=== PATIENT | female | born 1940 | race Caucasian/White ===

== ENCOUNTER 2016-12-01 04:00 | Inpatient (IN) ==
[2016-11-26 09:50] LABS: MANUAL DIFF NEEDED? NO
[2016-11-26 10:02] LABS: BASO% 0.6 % (0.0-0.8); EOS% 2.2 % (0.0-10.0); HEMATOCRIT 45.8 % (37.0-47.0); HEMOGLOBIN 14.7 g/dL (12.0-16.0); LYMPH# 1.96 X1000 (1.2-3.4); LYMPH% 21.9 % (20.5-51.1); MCH 27.6 PG (27-31); MCHC 32.1 g/dL (33-37); MCV 86.1 FL (81-99); MONO# 0.61 X1000 (0.11-0.59); MONO% 6.8 % (1.7-9.3); MPV 9.2 FL (7.4-10.4); NEUT% 68.5 % (42.2-75.2); PLT 383 X1000 (130-400); RBC 5.32 XMIL (4.2-5.4)
--- NOTE | 2016-11-26 10:21 | Diag Imaging Result Document ---
PROCEDURE NAME: CHEST-2 VIEWS - 11/26/2016 TWO VIEWS OF THE CHEST: FINDINGS: There are calcified nodes in the right tracheobronchial region. There is no evidence of acute cardiac or pulmonary disease. There are no previous studies. IMPRESSION: No acute disease.
[2016-11-26 10:31] LABS: AGAP 10; BUN 12 mg/dL (8-22); CALCIUM 9.6 mg/dL (8.8-10.2); CHLORIDE 102 mmol/L (98-107); COSMO 280; POTASSIUM 4.5 mmol/L (3.5-5.1); SODIUM 141 mmol/L (136-145); TCO2 29 mmol/L (25-35)
--- NOTE | 2016-11-26 14:00 | EKG Report ---
Test Performed on : 11/26/2016 09:17:42 AM Test Reason : PAT Blood Pressure : / mmHG Vent. Rate : 069 BPM Atrial Rate : 069 BPM P-R Int : 110 ms QRS Dur : 082 ms QT Int : 404 ms P-R-T Axes : 057 053 068 degrees QTc Int : 432 ms Sinus rhythm. with short WI Possible Left atrial enlargement Borderline ECG When compared with ECG of 02-DEC-2010 11:37, No significant change was found Confirmed by Dimitri WOODS, Misael Logan ([id number]) on 11/28/2016 5:19:40 PM
[2016-12-01] MEDS ORDERED: LR 1,000 ML ONE ×2 (11:07→14:17)
[2016-12-01] MEDS ORDERED: INVANZ 1 GM/NS 50 ML ONE (11:08)
[2016-12-01] MEDS ORDERED: PEPCID ONE (11:41)
[2016-12-01] MEDS ORDERED: REGLAN ONE (11:41)
[2016-12-01 13:02] LABS: URINE SOURCE CATH
[2016-12-01 13:10] LABS: BILIRUBIN URINE SMALL (NEGATIVE); BLOOD URINE TRACE-INTACT (NEGATIVE); CLARITY CLEAR (CLEAR); COLOR YELLOW; GLUCOSE URINE NEGATIVE (NEGATIVE); LEUKOCYTES URINE NEGATIVE (NEGATIVE); NITRITE URINE NEGATIVE (NEGATIVE); PROTEIN URINE NEGATIVE (NEGATIVE); SP GRAVITY URINE >= 1.030; UROBILINOGEN URINE 0.2 EU/dL (0.2-1.0)
[2016-12-01 13:18] LABS: URINE WBC <10 /HPF (<10)
[2016-12-01 13:19] LABS: URINE CAST GRANULAR PRESENT /LPF; URINE EPITHELIAL CELLS <10 /HPF (<10); URINE RBC <10 /HPF (<10)
[2016-12-01] MEDS ORDERED: FENTANYL ONE (14:04)
[2016-12-01] MEDS ORDERED: DIPRIVAN 1% ONE (14:04)
[2016-12-01] MEDS ORDERED: MORPHINE ONE ×3 (14:12→14:44)
[2016-12-01] MEDS ORDERED: NEOSTIGMINE ONE (14:16)
[2016-12-01] MEDS ORDERED: ZOFRAN ONE (14:16)
[2016-12-01] MEDS ORDERED: SODIUM CHLORIDE 0.9% 10 ML ONE (14:16)
[2016-12-01] MEDS ORDERED: NORCURON ONE (14:17)
[2016-12-01] MEDS ORDERED: OFIRMEV 1000 MG/ISOTONIC SOLN 100 ML ONE (14:17)
[2016-12-01] MEDS ORDERED: XYLOCAINE-MPF 2% ONE (14:17)
[2016-12-01] MEDS ORDERED: DECADRON ONE (14:17)
[2016-12-01] MEDS ORDERED: ROBINUL ONE (14:17)
[2016-12-01] MEDS ORDERED: STERILE WATER INJ. ONE (14:17)
[2016-12-01] MEDS ORDERED: QUELICIN (DOSE) ONE (14:17)
[2016-12-01] MEDS ORDERED: NEO-SYNEPHRINE ONE (14:17)
[2016-12-01] MEDS ORDERED: NS 1,000 ML ONE (14:23)
--- NOTE | 2016-12-01 14:59 | OPERATIVE NOTE ---
PROCEDURE DATE: 12/01/2016 PROCEDURE: 1. Exploratory laparotomy with excision of greater curvature gastric tumor. 2. Excision of portion of the left lobe of the liver. 3. Excision of multiple peritoneal/omental implants. SURGEON: Chris Olsen MD RECRUITER: ROBERT Palma and ROBERT Collins. PREOPERATIVE DIAGNOSIS: Large abdominal mass that is gastrointestinal stromal tumor on biopsy. POSTOPERATIVE DIAGNOSIS: Large abdominal mass that is gastrointestinal stromal tumor on biopsy. This mass appears to originate from the stomach greater curve. DESCRIPTION OF PROCEDURE: Satisfactory general endotracheal anesthesia was achieved. The abdomen was prepped and draped in a sterile fashion. A midline incision was made from the epigastrium down just below the umbilicus. We carried our incision through the subcutaneous tissue through the midline fascia, opening the abdominal cavity the extended of the skin incision. The mass was immediately evident. There were omental implants identified. There was a mass in the left lobe of the liver. This was in the lateral lobe. 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 So we dissected around the fleshy type tumor. It was somewhat friable and there were some abdominal wall adhesions, which we divided with the LigaSure. After freeing up the surrounding adhesions, we then felt like this mass was attached to the greater curvature of the stomach. I was able to get around the attachment and then used a STACY 80 blue cartridge to staple and divide the greater curvature, where I felt that this mass was probably attached, this disconnected it from the stomach. It was attached to the diaphragm near the EG junction and we divided that with the LigaSure. It did not appear to be invading any other structures so the adhesions that were attached to it I used the LigaSure to divide until we could hand off the tumor. It measured 24 x 18 x 5 cm. There were also multiple fleshy omental implants, which we excised each 1 using the LigaSure. We removed every one that we could identify. We inspected the pelvis and no mass was palpated in the pelvis, no other mass lesions were identified except there was a lesion in the left lobe of the liver laterally. So I used the LigaSure to go through the left lobe of the liver to excise what appeared to be an isolated metastasis in the left lateral lobe. After removing that portion of the left lateral lobe of the liver, we then used 2 liver stitches to approximate the limbs of the liver together. This was sort of a U shaped excision from the left lateral left lobe and so we put stitches around the 2 limbs of the U to approximate them and achieve hemostasis. The right hepatic lobe was not easily accessible due to the previous right upper quadrant incision and adhesions. But there were no other omental implants that were grossly identified. We then copiously irrigated the abdominal cavity. Hemostasis was satisfactory. I then proceeded to close the peritoneum with a 2-0 chromic, closed the fascia with a running #2 Prolene, irrigated out the subcutaneous tissue and closed the skin with penny. Sterile dressing was applied. She tolerated it well, was sent to the recovery room in satisfactory condition.
[2016-12-01] MEDS ORDERED: ULTRAM PO PRN (15:05)
[2016-12-01] MEDS ORDERED: ZOFRAN IV PRN (15:05)
[2016-12-01] MEDS ORDERED: OFIRMEV 1000 MG/ISOTONIC SOLN 100 ML IV SCH (15:05)
[2016-12-01] MEDS: MORPHINE IV SCH ×2 (18:32→23:15)
[2016-12-01] MEDS: NS 1,000 ML IV SCH ×2 (19:30→23:19)
[2016-12-01] MEDS: OFIRMEV 1000 MG/ISOTONIC SOLN 100 ML IV SCH (19:30)
[2016-12-01] MEDS: PERIDEX MT SCH (23:14)
[2016-12-01] MEDS: SODIUM CHLORIDE 0.9% INJ SCH (23:14)
[2016-12-01] MEDS: PROTONIX IV SCH (23:15)
[2016-12-02] MEDS: MORPHINE IV SCH ×7 (00:26→21:38)
[2016-12-02] MEDS: OFIRMEV 1000 MG/ISOTONIC SOLN 100 ML IV SCH ×4 (00:32→21:39)
[2016-12-02] MEDS: NS 1,000 ML IV SCH ×4 (05:26→21:37)
[2016-12-02 05:58] LABS: HEMATOCRIT 37.2 % (37.0-47.0); HEMOGLOBIN 11.8 g/dL (12.0-16.0); IMM GRAN# 0.02 X1000 (0.0-0.04); IMM GRAN% 0.2 % (0.0-0.5); LYMPH# 0.86 X1000 (1.2-3.4); LYMPH% 8.8 % (20.5-51.1); MANUAL DIFF NEEDED? NO; MCH 27.4 PG (27-31); MCHC 31.7 g/dL (33-37); MCV 86.5 FL (81-99); MONO# 0.48 X1000 (0.11-0.59); MONO% 4.9 % (1.7-9.3); MPV 9.5 FL (7.4-10.4); NEUT% 86.1 % (42.2-75.2); PLT 280 X1000 (130-400)
[2016-12-02 06:03] LABS: AGAP 15; BUN 13 mg/dL (8-22); CALCIUM 7.8 mg/dL (8.8-10.2); CHLORIDE 103 mmol/L (98-107); COSMO 279; POTASSIUM 4.4 mmol/L (3.5-5.1); SODIUM 139 mmol/L (136-145); TCO2 21 mmol/L (25-35)
[2016-12-02] MEDS: PERIDEX MT SCH ×2 (08:33→21:37)
[2016-12-02] MEDS: PROTONIX IV SCH (21:37)
[2016-12-02] MEDS: SODIUM CHLORIDE 0.9% INJ SCH (21:37)
[2016-12-03] MEDS: OFIRMEV 1000 MG/ISOTONIC SOLN 100 ML IV SCH ×4 (03:22→21:48)
[2016-12-03] MEDS: MORPHINE IV SCH (03:23)
[2016-12-03] MEDS: NS 1,000 ML IV SCH ×2 (03:24→19:16)
[2016-12-03] MEDS ORDERED: MORPHINE IV PRN (07:49)
[2016-12-03] MEDS: PERIDEX MT SCH ×2 (09:50→21:48)
[2016-12-03] MEDS: PROTONIX IV SCH (21:48)
[2016-12-03] MEDS: SODIUM CHLORIDE 0.9% INJ SCH (21:48)
[2016-12-04] MEDS: OFIRMEV 1000 MG/ISOTONIC SOLN 100 ML IV SCH ×4 (03:27→22:42)
[2016-12-04] MEDS ORDERED: SALINE LOCK IV FLUID XX ONE (09:15)
[2016-12-04] MEDS: PERIDEX MT SCH ×2 (09:42→22:42)
[2016-12-05] MEDS: OFIRMEV 1000 MG/ISOTONIC SOLN 100 ML IV SCH ×2 (02:58→10:00)
[2016-12-05] MEDS: PRILOSEC PO SCH ×2 (05:58→06:06)
[2016-12-05] MEDS: PERIDEX MT SCH (10:00)
[2016-12-05 14:05] VITALS: BP 121/68
--- NOTE | 2016-12-10 11:53 | DISCHARGE SUMMARY ---
ADMISSION DATE: 12/01/2016 DISCHARGE DATE: 12/05/2016 PRIMARY DISCHARGE DIAGNOSIS: Metastatic gastrointestinal stromal tumor. PRIMARY PROCEDURE: 1. Was exploratory laparotomy with resection of the gastrointestinal stromal tumor. 2. Excision of portion of the left lobe of the liver with the metastasis. 3. Excision of multiple peritoneal metal implants done on 12/01/2016. HOSPITAL COURSE: This is a 76-year-old lady, sent by Dr. Honeycutt, with a very large abdominal mass, and on percutaneous biopsy proven to be a gastrointestinal stromal tumor. She was admitted for possible resection. Hospital course following her admission, she was taken to the operating room and this large fleshy tumor was identified. It appeared to arise from the greater curve of the stomach and it was removed in toto. There were multiple omental implants that were also removed individually until we could identify no further implants. A mass in the left lobe of the liver was identified and we also did a partial resection of the left lobe in order to remove that metastasis. At the termination of the procedure, no further residual tumor was identified grossly. Hospital course she did generally well. We removed her Johnson on the first postoperative day. Started on was the sips of clear liquids on the 2nd postoperative day. We advanced her diet subsequently. We switch her to omeprazole on the 3rd postoperative day. By the fourth postoperative day, that was 12/05/2016, she was eating, her bowels had moved, her wound was fine, and it is felt she could be discharged home. She will return to the office in 5 days for follow up. The final path report is pending.
== END 2016-12-05 16:11 | disposition home or self-care (01) | DRG 982 ==
LOC: SURHOLD 04:00 → 4N 14:04 → DIRADM 12-03 13:17 → 4N 12-03 13:25
PROVIDERS: ADMIT Surgery; ATTEND Surgery
PROC: 0FB20ZZ Excision of Left Lobe Liver, Open Approach (ICD-10-PCS; 2016-12-01)
PROC: 0DB60ZZ Excision of Stomach, Open Approach (ICD-10-PCS; principal; 2016-12-01 12:18)
PROC: 0DBS0ZZ (ICD-10-PCS; 2016-12-01 12:18)
DX: C49.A2 Gastrointestinal stromal tumor of stomach (principal); C78.7 Secondary malignant neoplasm of liver and intrahepatic bile duct; C78.6 Secondary malignant neoplasm of retroperitoneum and peritoneum; F17.210 Nicotine dependence, cigarettes, uncomplicated; M19.90 Unspecified osteoarthritis, unspecified site; E78.00 Pure hypercholesterolemia, unspecified; Z86.711 Personal history of pulmonary embolism; Z79.899 Other long term (current) drug therapy; Z79.82 Long term (current) use of aspirin; Z82.49 Family history of ischemic heart disease and other diseases of the circulatory system; Z79.1 Long term (current) use of non-steroidal anti-inflammatories (NSAID)
CPT/HCPCS: 71020; 80048; 81001; 85025; 86850; 86900; 86901; 88307; 88309; 88313; 93005; 93010; 94761; 94799; C9113; J0131; J0330; J1100; J1335; J2270; J2370; J2405; J3010; J7030; J7120; J2710; S0164

== ENCOUNTER 2019-10-05 02:05 | Inpatient (IN) ==
--- NOTE | 2019-09-14 08:17 | EKG Report ---
Test Performed on : 09/14/2019 08:04:48 AM Test Reason : PAT Blood Pressure : / mmHG Vent. Rate : 075 BPM Atrial Rate : 075 BPM P-R Int : 122 ms QRS Dur : 082 ms QT Int : 408 ms P-R-T Axes : 077 080 076 degrees QTc Int : 455 ms Normal sinus rhythm. Normal ECG When compared with ECG of 26-NOV-2016 09:17, No significant change was found Confirmed by Elizabeth WOODS, Brady ([id number]) on 09/14/2019 5:53:35 PM
[2019-09-14 08:28] LABS: URINE SOURCE CLEAN CATCH
[2019-09-14 08:55] LABS: BILIRUBIN URINE NEGATIVE (NEGATIVE); BLOOD URINE NEGATIVE (NEGATIVE); COLOR YELLOW; GLUCOSE URINE NEGATIVE (NEGATIVE); KETONE URINE NEGATIVE (NEGATIVE); LEUKOCYTES URINE NEGATIVE (NEGATIVE); NITRITE URINE NEGATIVE (NEGATIVE); PH URINE 5.5; PROTEIN URINE 30 mg/dL (NEGATIVE); SP GRAVITY URINE 1.017; TURBIDITY URINE CLEAR (CLEAR); UROBILINOGEN URINE NORMAL (NORMAL)
[2019-09-14 08:56] LABS: BASO# 0.02 X1000 (0.0-0.2); BASO% 0.4 % (0.0-0.8); EOS# 0.12 X1000 (0.0-0.7); EOS% 2.3 % (0.0-10.0); HEMATOCRIT 37.4 % (37.0-47.0); HEMOGLOBIN 11.8 g/dL (12.0-16.0); LYMPH# 1.43 X1000 (1.2-3.4); LYMPH% 27.1 % (20.5-51.1); MCH 29.7 PG (27-31); MCHC 31.6 g/dL (33-37); MCV 94.2 FL (81-99); MONO# 0.38 X1000 (0.11-0.59); MONO% 7.2 % (1.7-9.3); MPV 9.2 FL (7.4-10.4); NEUT# 3.33 X1000 (1.4-6.5); PLT 345 X1000 (130-400); RBC 3.97 XMIL (4.2-5.4); RDW 13.4 % (11.5-14.5); UR EPITHELIAL CELLS <10 /HPF (<10); URINE BACTERIA NEGATIVE /HPF; URINE RBC <10 /HPF (<10); URINE WBC <10 /HPF (<10); WBC 5.28 X1000 (4.8-10.8)
[2019-09-14 08:57] LABS: INR 1.06; PROTIME 13.9 Seconds (11.0-16.0); PTT 29.7 Seconds (22.3-41.8)
[2019-09-14 09:15] LABS: AGAP 12; BUN 15 mg/dL (8-22); CALCIUM 9.1 mg/dL (8.8-10.2); CHLORIDE 101 mmol/L (98-107); COSMO 280; CREATININE 0.9 mg/dL (0.5-0.9); ESTIMATED GFR > 60; GLUCOSE 98 mg/dL (70-104); SODIUM 140 mmol/L (136-145); TCO2 27 mmol/L (25-35)
[2019-09-14 10:04] LABS: HEMOGLOBIN A1C 5.4 % (4.8-6.0)
[2019-10-05] MEDS ORDERED: REGLAN ONE (06:27)
[2019-10-05] MEDS ORDERED: PEPCID ONE (06:27)
[2019-10-05] MEDS ORDERED: COLACE ONE (06:27)
[2019-10-05] MEDS ORDERED: LR 1,000 ML ONE (06:28)
[2019-10-05] MEDS ORDERED: LYRICA ONE (06:28)
[2019-10-05] MEDS ORDERED: KEFZOL 1 GM/D5W 1 GM/50 ML IVPB ONE (06:28)
[2019-10-05] MEDS ORDERED: ROBINUL ONE ×2 (06:28→09:35)
[2019-10-05] MEDS ORDERED: CELEBREX ONE (06:28)
[2019-10-05] MEDS ORDERED: DIPRIVAN 1% ONE (07:01)
[2019-10-05] MEDS ORDERED: QUELICIN (DOSE) ONE (07:01)
[2019-10-05] MEDS ORDERED: ZEMURON ONE (07:01)
[2019-10-05] MEDS ORDERED: XYLOCAINE-MPF 2% ONE (07:01)
[2019-10-05] MEDS ORDERED: DUONEB (A & A) ONE (07:01)
[2019-10-05] MEDS ORDERED: TORADOL ONE (07:06)
[2019-10-05] MEDS ORDERED: DURAMORPH ONE (07:06)
[2019-10-05] MEDS ORDERED: NEOSPORIN G.U. IRRIGANT ONE (07:07)
[2019-10-05] MEDS ORDERED: MARCAINE 0.25% PF ONE (07:07)
[2019-10-05] MEDS ORDERED: EXPAREL 1.3% ONE (07:07)
[2019-10-05] MEDS ORDERED: SODIUM CHLORIDE 0.9% ONE (07:07)
[2019-10-05] MEDS ORDERED: CYKLOKAPRON 1,000 MG/NS 1,000 MG/100 ML IVPB ONE (07:07)
[2019-10-05] MEDS ORDERED: SODIUM CHLORIDE 0.9% 10 ML ONE (08:27)
[2019-10-05] MEDS ORDERED: NEO-SYNEPHRINE ONE (08:27)
[2019-10-05] MEDS ORDERED: EPHEDRINE ONE (10:12)
[2019-10-05 10:14] LABS: URINE SOURCE CATH
[2019-10-05 10:23] LABS: BILIRUBIN URINE NEGATIVE (NEGATIVE); BLOOD URINE MODERATE (NEGATIVE); COLOR YELLOW; GLUCOSE URINE NEGATIVE (NEGATIVE); KETONE URINE NEGATIVE (NEGATIVE); LEUKOCYTES URINE NEGATIVE (NEGATIVE); NITRITE URINE NEGATIVE (NEGATIVE); PH URINE 6.5; PROTEIN URINE TRACE mg/dL (NEGATIVE); SP GRAVITY URINE 1.012; TURBIDITY URINE CLEAR (CLEAR); UR EPITHELIAL CELLS <10 /HPF (<10); URINE BACTERIA NEGATIVE /HPF; URINE RBC <10 /HPF (<10); URINE WBC <10 /HPF (<10); UROBILINOGEN URINE NORMAL (NORMAL)
--- NOTE | 2019-10-05 10:49 | Diag Imaging Result Doc PS360 ---
EXAM: SHOULDER 1 VIEW LEFT 10/05/2019 HISTORY: L TSA TECHNIQUE: AP portable left shoulder COMMENT: There is a total shoulder arthroplasty. There are severe changes in the acromioclavicular joint. No evidence of acute fracture or other acute bony abnormality is present. IMPRESSION: Osteoarthritis and postsurgical change. Electronically signed by Gonzalo De La Cruz 10/05/2019 10:47 AM
[2019-10-05] MEDS ORDERED: NS 1,000 ML ONE (10:52)
[2019-10-05] MEDS ORDERED: ZOFRAN PO PRN (11:45)
[2019-10-05] MEDS ORDERED: OXY IR PO PRN ×2 (11:45)
[2019-10-05] MEDS ORDERED: MILK OF MAGNESIA PO PRN (11:45)
[2019-10-05] MEDS ORDERED: MORPHINE IV PRN ×3 (11:45)
[2019-10-05] MEDS: NS 1,000 ML IV SCH ×2 (12:00→21:47)
[2019-10-05] MEDS: KEFZOL 1 GM/D5W 1 GM/50 ML IVPB IV SCH ×2 (13:35→21:46)
[2019-10-05] MEDS ORDERED: CYKLOKAPRON 1,000 MG/NS 1,000 MG/100 ML IVPB IV ONE (15:00)
--- NOTE | 2019-10-05 15:10 | OPERATIVE NOTE ---
PROCEDURE DATE: 10/05/2019 PREOPERATIVE DIAGNOSIS: Left glenohumeral arthritis with a chronic rotator cuff tear. POSTOPERATIVE DIAGNOSIS: Left glenohumeral arthritis with a chronic rotator cuff tear. PROCEDURE PERFORMED: Left reverse total shoulder arthroplasty with DePuy Delta Xtend size 12 press-fit stem, a 38+ 6 humeral cup, a 38+ 2 mm lateralized eccentric Glenosphere standard Metaglene. SURGEON: Chris Mccann M.D. HULL BUILDER: VIKRAM Abraham, who was necessary for proper retraction and manipulation of the extremity during the case. ANESTHESIA: General. IV FLUIDS: 1000 mL of lactated Ringer's. ESTIMATED BLOOD LOSS: 200 mL. COMPLICATIONS: None. INDICATION: The patient is a pleasant, 79-year-old female with chronic history of pain and discomfort in the left shoulder. She is status post arthroscopic rotator cuff tear in 2010. She has developed some increased pain over the last couple years, and MRI was obtained with a large full-thickness rotator cuff tear as well as some degenerative arthritis. Given the patient's findings, recommendation to proceed with left reverse total shoulder arthroplasty was offered. Risks and benefits of surgery were explained, including the risks of anesthesia, , bleeding, infection, failure to relieve pain, postoperative stiffness, nerve injury, blood clots, and other imponderables. All questions were answered. The patient and family wish to proceed with surgery. DESCRIPTION OF PROCEDURE: The patient was taken to the operating room and placed supine on the operating table. Once adequate anesthesia was obtained, the patient was placed in semi-Victor beach chair position. The left shoulder was subsequently prepped and draped in the usual sterile fashion. A standard deltopectoral incision was made with a skin knife. Hemostasis was obtained using electrocautery. The deltopectoral interval was then developed, and Rosario retractor was placed. The clavipectoral fascia was elevated, as well as retractors placed deep to the conjoint tendon. The subscapularis tendon was then identified, and stay sutures placed. This end released approximately a centimeter medial to its insertion. After this had been performed, the head was then dislocated anteriorly. A starting reamer was then passed. An intramedullary guide was placed up to a size 10. Intramedullary guide was placed in position, along with the proximal humeral cutting block, placed in approximately 15 degrees of retroversion. The humeral head was then resected. A protective disk was then placed. Attention was then turned to the glenoid, and circumferential dissection was performed with a deep knife. A guide was then placed on the glenoid, and a guide pin was then placed. Reaming was then conducted. Central hole was then dilated. Copious irrigation was then performed with pulsatile lavage. A standard Metaglene was then impacted. Two locking screws and two nonlocking screws were placed. There appeared to be good fixation. The wound was copiously irrigated once again with pulsatile lavage. A 38+ 2 mm lateralized eccentric glenosphere was placed with eccentricity placed inferiorly. Attention was then turned to the proximal humerus, where it was felt that it reamed up to a size 12, and had good fit with this. Intramedullary guide was placed in position. Proximal humerus was then reamed. After this had been performed, the wound was copiously irrigated. Using autologous impaction bone grafting, the size 12 Delta Xtend press-fit stem was then placed in approximately 15 degrees of retroversion. It had good fit. Trial cup sizing was performed, and a 38+ 6 humeral cup had excellent stability and range of motion. Trial cup was removed. The wound was copiously irrigated once again. A 38+ 6 humeral cup was then placed. The shoulder was reduced, carried through range of motion, had excellent stability and range of motion. Exparel was placed in the deep soft tissue. The wound was copiously irrigated. A #2 FiberWire was used to repair subscapular tendon. The wound was copiously irrigated once again, followed by the remaining Exparel in the deep soft tissue, as well as subcutaneous tissue. Final irrigation was then performed. Then, 2-0 Vicryl was used to repair the subcutaneous tissue, followed by running 2-0 Prolene. Benzoin and Steri-Strips were applied. Adaptics, sterile 4 x 4's, ABD pad, followed by tape. A shoulder immobilizer was then placed. The patient tolerated the procedure well. No complications. Transferred to the recovery room in stable condition. cc: Chris Mccann MD
[2019-10-05] MEDS ORDERED: ZOCOR PO SCH (21:00)
[2019-10-05] MEDS ORDERED: IMATINIB MESYLATE 300 MG PO SCH (21:00)
[2019-10-05] MEDS: CALTRATE 600 PO SCH (21:48)
[2019-10-05] MEDS: PERIDEX MT SCH (21:48)
[2019-10-05] MEDS: COLACE PO SCH (21:48)
[2019-10-06 02:57] VITALS: BP 119/59
[2019-10-06 07:26] LABS: AGAP 10; BUN 11 mg/dL (8-22); CALCIUM 7.6 mg/dL (8.8-10.2); CHLORIDE 103 mmol/L (98-107); COSMO 275; CREATININE 0.9 mg/dL (0.5-0.9); ESTIMATED GFR > 60; GLUCOSE 133 mg/dL (70-104); POTASSIUM 4.7 mmol/L (3.5-5.1); SODIUM 137 mmol/L (136-145); TCO2 24 mmol/L (25-35)
[2019-10-06] MEDS: NS 1,000 ML IV SCH (08:11)
[2019-10-06] MEDS ORDERED: ASPIRIN PO SCH (09:00)
[2019-10-06] MEDS: PERIDEX MT SCH (09:42)
[2019-10-06] MEDS: CALTRATE 600 PO SCH (09:42)
[2019-10-06] MEDS: COLACE PO SCH (09:42)
--- NOTE | 2019-10-06 11:42 | ORTHOPAEDICS PROGRESS NOTE ---
DATE: 10/06/2019 SUBJECTIVE: The patient is a pleasant 79-year-old female who is 1 day status post left reverse total shoulder arthroplasty. She is currently resting comfortably. She has no complaints this morning. OBJECTIVE: Vital Signs: Patient's vital signs are stable. Left upper extremity: Her dressing is intact. She is neurovascularly intact distally. She is able to flex and extend all her fingers. Good pipe cutter strength. LABORATORY DATA: Her labs are pending. IMPRESSION: Postoperative day #1 status post left reverse shoulder arthroplasty. PLAN: We will plan on discharging home once she is mobilizing. We will arrange for outpatient physical therapy, and the patient follow up in the office in 10 or 12 days. cc: Chris Mccann MD
== END 2019-10-06 12:02 | disposition home or self-care (01) | DRG 483 ==
LOC: SURHOLD 02:05 → 4N 10:14
PROVIDERS: ADMIT Orthopaedic Surgery Adult Reconstructive Orthopaedic Surgery; ATTEND Orthopaedic Surgery Adult Reconstructive Orthopaedic Surgery